=== PATIENT | female | born 1995 | race Asian ===

== ENCOUNTER 2019-03-28 16:57 | Emergency (ER) | payer OTHER ==
[~2019-03-28] VITALS: Ht 162.6 cm; Wt 72.6 kg
[2019-03-28 17:23] VITALS: BP 145/81
--- NOTE | 2019-03-28 17:32 | NUR ---
PT AMBULATED TO BED 09.
[2019-03-28] MEDS ORDERED: DEXAMETHASONE 10 MG/ML VIAL IM ONE (17:40)
--- NOTE | 2019-03-28 17:45 | NUR ---
23 Y/O F C/O COLD SYMPTOMS THAT BEGAN 4 DAYS AGO. PT STATES HER THROAT HURTS WHEN SWALLOWING. PT HAS A PRODUCTIVE COUGH. LUNG SOUNDS CLEARED. PT HAS TAKEN OVER THE COUNTER MEDICATIONS AT HOME THAT HAVE NOT RELIEVED SYMPTOMS. ROSANNE
[2019-03-28 17:56] VITALS: BP 145/81
--- NOTE | 2019-03-28 17:57 | NUR ---
Patient discharged with v/s stable. Written and verbal after care instructions given and explained. Patient verbalized understanding. Ambulatory with steady gait. All questions addressed prior to discharge. Advised to follow up with PMD.
== END 2019-03-28 17:57 | disposition home or self-care (01) ==
LOC: MED 16:57
DX: J06.9 Acute upper respiratory infection, unspecified (principal)
CPT/HCPCS: 96372; 99283; J1100